=== PATIENT | male | born 1940 | race Caucasian/White ===

== ENCOUNTER 2016-09-07 18:42 | Emergency (ER) | payer MEDICARE ==
[~2016-09-07] VITALS: Ht 180.3 cm; Wt 94.5 kg
[2016-09-07 18:45] VITALS: BP 161/86; PULSE 70; RESP 16; O2SAT 96
[2016-09-07 19:20] LABS: BASOPHILS % (AUTO) 0.1 % (0-3); EOSINOPHILS % (AUTO) 1.2 % (0-5); MONOCYTES % (AUTO) 9.2 % (4-12); Mean Corpuscular Hemoglobin 31.1 pg (27.0-35.0); Mean Corpuscular Volume 92.2 fL (81-100); NEUTROPHILS % (AUTO) 70.5 % (40-74); Platelet Count 252 bil/L (150-400)
[2016-09-07 19:43] LABS: Magnesium 2.2 mg/dL (1.6-2.6)
[2016-09-07 20:53] VITALS: BP 153/81; PULSE 61; RESP 14; O2SAT 95
--- NOTE | 2016-09-07 21:07 | ED.REPORT ---
HPI-Abd Pain M 40 and Over Date of Service Sep 07, 2016 ED Provider: Andrew Tirado MD The patient is a 76 year old male who presents to the ED complaining of epigastric abdominal pain for the last week. He reports his pain is exacerbated by eating and that it begins immediately after he eats. He denies radiation of his pain. Associated symptom of constipation. He denies nausea, vomiting, dysuria, cough, or any other symptoms at this time. He denies alcohol consumption. Nursing Notes Stated Complaint: CHEST PAIN Chief Complaint: Male Abdominal Pain Nursing Notes Reviewed: Yes Allergies: Coded Allergies: acetaminophen (Verified Allergy, Severe, Rash,Itching,, 09/07/16) Scheduled Omeprazole (Omeprazole) 20 Mg Tablet.dr 20 MG PO BID Scheduled PRN oxyCODONE (oxyCODONE) 5 Mg Capsule 5 MG PO Q4H PRN PRN For Pain General Time Seen by MD: 21:06 Chief Complaint Abdominal pain Hx Obtained From: Patient, Spouse Arrived By: Walk-in Sudden in Onset?: No Onset Occurred: 1 week ago Symptom Duration: Intermittent Location: : Epigastric Quality: Painful Severity: Current: Mild Severity: Maximum: Moderate Recent Healthcare: No recent doctor visit, No recent hospitalization Similar Sx Previous: No Past Medical History Past Medical History CVA DM Past Surgical History Reports: Appendectomy Smoking History Never Smoker Social History Alcohol Use: Denies alcohol use Drug Use: Denies drug use Ambulatory Status Independent Review of Systems Constitutional: Denies: Chills, Fever Respiratory: Denies: Non-productive cough, Shortness of breath GI: Reports: Abdominal pain, Constipation, Denies: Diarrhea, Nausea, Vomiting Male: Denies Dysuria Musculoskeletal: Denies: Back pain, Extremity pain, Neck pain Complete sys rev & neg: except as marked. Physical Exam Initial Vital Signs Vital Signs (First) Date Time Temp Pulse Resp B/P Pulse Ox O2 Delivery O2 Flow Rate FiO2 09/07/16 18:45 36.1 70 16 161/86 96 Room Air Initial VS: Reviewed Head / Eyes: Atraumatic, Normocephalic, PERRL ENT: Mucous membranes moist, Conjunctiva normal, No scleral icterus Neck: Supple, Non-tender, Full range of motion Extremities: Vascular intact, Neuro intact, No swelling, No tenderness Skin: Warm, Dry, No cyanosis Neurologic: Alert, Oriented, Nonfocal Psychiatric: Mood/affect normal, Behavior normal, Normal thought content General/Constitutional: Awake, Alert, No acute distress Respiratory / Chest: Atraumatic, Breath sounds NL, Breath sounds = bilat, No respiratory distress Cardiovascular: Heart rate NL, Regular rhythm, Heart sounds NL Abdomen: Atraumatic, Soft Tenderness/Guarding/Rebound: Positive: Tender epigastric Back: Atraumatic, Inspection NL, Full range of motion Interpretation & Diagnostics Lab Results Interpretation Result Diagram: 09/07/16191409/07/161914 Test 09/07/16 19:15 09/07/16 21:50 White Blood Count 6.8th/mm3 (3.8-10.1) Red Blood Count 3.86mil/mm3 (4.40-5.80) Hemoglobin 12.0g/dL (13.8-17.2) Hematocrit 35.6% (41.0-50.0) Mean Corpuscular Volume 92.2fL (81-100) Mean Corpuscular Hemoglobin 31.1pg (27.0-35.0) Mean Corpuscular Hemoglobin Concent 33.7% (32.0-37.0) Red Cell Distribution Width 11.8% (12.3-15.4) Platelet Count 252bil/L (150-400) Neutrophils (%) (Auto) 70.5% (40-74) Lymphocytes (%) (Auto) 18.7% (14-46) Monocytes (%) (Auto) 9.2% (4-12) Eosinophils (%) (Auto) 1.2% (0-5) Basophils (%) (Auto) 0.1% (0-3) Sodium Level 138mEq/L (134-144) Potassium Level 4.4mEq/L (3.5-5.2) Chloride Level 102mEq/L (97-108) Carbon Dioxide Level 23mmol/L (18-29) Blood Urea Nitrogen 34mg/dL (8-27) Creatinine 1.77mg/dL (0.76-1.27) Estimat Glomerular Filtration Rate 40mL/min (>59) Glucose Level 191mg/dL (60-99) Calcium Level 8.6mg/dL (8.5-10.1) Magnesium Level 2.2mg/dL (1.6-2.6) Total Bilirubin 0.2mg/dL (0.0-1.2) Aspartate Amino Transf (AST/SGOT) 21U/L (0-50) Alanine Aminotransferase (ALT/SGPT) 16U/L (0-44) Alkaline Phosphatase 60U/L (25-160) Total Protein 6.4g/dL (6.4-8.4) Albumin 3.8g/dL (3.4-5.0) Lipase 29U/L (13-60) Hold Lora Top Tube Received (Received) Hold Urine Received (Received) Lab Results Interpretation: Urine dip significant for elevated glucose (250) ECG Interpretation ECG Interpretation: Sinus rhythm with rate 57 1st degree AV block Possible old inferior wall [place] Time: 20:47 Interpreted by: ED physician CT Abd / Pelvis Interpretation CONCLUSION: Small hiatal hernia. No inflammatory bowel changes. No cholelithiasis or evidence of cholecystitis. No CT evidence of pancreatitis. Status post prostatectomy and probably pelvic lymph node dissection. Study type: Abdominal CT IV contrast Interpretation / Wet Read by: Interpret - Radiologist Re-Eval/Medical Decision Med Decision/Clinical Course Acute epigastric pain associated with eating. Story most suggestive of reflux and possible ulcer disease. No evidence of pancreatitis. No evidence of acute heart disease. No evidence of cold the cystitis. Pain is immediate and not delayed, and unlikely ischemic in origin. CT scan shows only a large hiatal hernia. No other findings on lab or evaluation otherwise. Home with twice a day omeprazole, routine reflux precautions, and return if worse. Source of Hx: Old records Time of Eval: 22:57 Re-Evaluation/Progress Note: Rechecked the patient. Discussed diagnosis and plan for discharge. Follow-up instructions and RTER warnings given. The patient understands and agrees to the plan. All questions addressed. Counseled Regarding: Diagnosis, Lab results, Need for follow-up, When/why to return to ED Discharge & Departure Primary Impression: Epigastric pain Additional Impressions: HH (hiatus hernia) Esophageal spasm Disposition: Home Vital Signs - All Vital Signs Date Time Temp Pulse Resp B/P Pulse Ox O2 Delivery O2 Flow Rate FiO2 09/07/16 23:20 64 18 163/72 97 Room Air 09/07/16 20:53 61 14 153/81 95 Room Air 09/07/16 18:45 36.1 70 16 161/86 96 Room Air )( All Prior VS Reviewed: Yes Condition: Stable Patient Instructions: Esophageal Spasm (ED), Gastroesophageal Reflux Disease ( ED), Hiatal Hernia (ED) Additional Instructions: Omeprazole twice daily. Eat smaller meals, more frequently. Avoid supine posture and bending over after eating. Oxycodone if needed for pain. Follow-up with your doctor in the office. Return if any immediate issues. Referrals: Lion Little (PCP) [place] Attestation Portions of this note were transcribed by Uri Campo. I, Dr. Tirado, personally performed the history, physical exam, and medical decision-making; I reviewed and confirmed the accuracy of the information in the transcribed note. Signed by: Mariposa Ward, 09/07/16 21:10. copies to: Lion Little Christopher W MD Sep 07, 2016 21:07 URI CAMPO Sep 07, 2016 21:16
[2016-09-07] MEDS ORDERED: Pantoprazole 4 mg/mL 10 mL Inj IVPUSH ONE (21:20)
[2016-09-07] MEDS ORDERED: 0.9% Sodium Chloride 1,000 ML IV ONE (21:20)
[2016-09-07] MEDS ORDERED: OXYC5CAP4 PO (22:57)
[2016-09-07] MEDS ORDERED: OMEP20TA86 PO (23:06)
[2016-09-07 23:20] VITALS: BP 163/72; PULSE 64; RESP 18; O2SAT 97
--- NOTE | 2016-09-08 08:19 | DRSVH ---
PROCEDURE: CT ABDOMEN AND PELVIS WITH CONTRAST ([id number]) INDICATIONS: Epigastric pain TECHNIQUE: After the administration of oral and intravenous contrast, 5 mm thick sections acquired from the diap hragms to the symphysis. 5 mm thick coronal and sagittal reformats were performed. For radiation do se reduction, the following was used: automated exposure control, adjustment of mA and/or kV accordi ng to patient size. COMPARISON: None. FINDINGS: Image quality: Excellent. ABDOMEN: Lung bases: There is mild dependent atelectasis. Heart size is normal. There is coronary arterial v ascular calcification. A small hiatal hernia is present. Solid organs: There is mild hypoattenuation of the liver consistent with fatty infiltration. The spl een is normal in size. Gallbladder is within normal limits without calcified gallstones. Biliary sy stem is non-dilated. The pancreas demonstrates mild fatty atrophy in the uncinate process. No perip ancreatic fat stranding or fluid. No pancreatic duct dilatation. No adrenal nodules. Kidneys are n ormal in size and enhancement, without hydronephrosis. Peritoneum and bowel: Stomach, small bowel, and colon loops are normal in caliber and wall thickness . Appendix not identified and likely surgically absent. No pericecal inflammatory changes to sugges t appendicitis. No free fluid or air. Nodes and vessels: No retroperitoneal or mesenteric adenopathy. Aorta and inferior vena cava are no rmal in caliber. Miscellaneous: No ventral hernias. PELVIS: Genitourinary: Bladder wall thickness is normal. Multiple surgical clips are demonstrated in the pe lvis compatible with prior prostatectomy and probable lymph node dissection. Miscellaneous: No inguinal hernias or adenopathy. Bones: No suspicious bony lesions. No vertebral body compression fractures. IMPRESSION: 1. Small sliding hiatal hernia. 2. No CT evidence of cholecystitis or pancreatitis. 3. Postsurgical changes in the pelvis as described. Findings concordant with preliminary report. Dictated by: Chas Wilde M.D. on 09/08/2016 at 8:14 Approved by: Chas Wilde M.D. on 09/08/2016 at 8:14
== END 2016-09-07 23:20 | disposition home or self-care (01) ==
LOC: SED 18:42
DX: R10.13 Epigastric pain (principal); K44.9 Diaphragmatic hernia without obstruction or gangrene; K22.4 Dyskinesia of esophagus; K59.00 Constipation, unspecified; E11.9 Type 2 diabetes mellitus without complications; Z86.73 Personal history of transient ischemic attack (TIA), and cerebral infarction without residual deficits; Z98.890 Other specified postprocedural states; Z88.8 Allergy status to other drugs, medicaments and biological substances
CPT/HCPCS: 36415; 74177; 80053; 83690; 83735; 85025; 93005; 96374; 99285; J7030; Q9967

== ENCOUNTER 2017-04-14 17:13 | Emergency (ER) | payer MEDICARE ==
[~2017-04-14] VITALS: Ht 180.3 cm; Wt 88.6 kg
[~2017-04-14 17:13] MED LIST: OMEP20TA86 PO; OXYC5CAP4 PO
[2017-04-14 17:18] VITALS: BP 134/85; PULSE 95; RESP 20; RESP 22; O2SAT 97
--- NOTE | 2017-04-14 18:09 | ED.REPORT ---
HPI-General Illness Date of Service Apr 14, 2017 ED Provider: Chucky Ca MD Patient is a 76 year old male with a hx of DM and CVA who presents to the ED complaining of a cough onset 6 days ago. He started to get better but has been gradually worsening. Associated symptoms include sore throat, SOB secondary to coughing, and pleuritic pain. He denies fever, chills, nausea, vomiting, abdominal pain, diarrhea, constipation, chest pain, or any other symptoms. He has been taking Delsym DM with mild relief. Nursing Notes Stated Complaint: COUGH Chief Complaint: FLU/Cold Symptoms Nursing Notes Reviewed: Yes Allergies: Coded Allergies: acetaminophen (Verified Allergy, Severe, Rash,Itching,, 04/14/17) Scheduled Guaifenesin/Codeine Phosphate (Coditussin AC Liquid) 200 Mg-10 Mg/5 Ml Liquid 5 ML PO TID Omeprazole (Omeprazole) 20 Mg Tablet.dr 20 MG PO BID Scheduled PRN oxyCODONE (oxyCODONE) 5 Mg Capsule 5 MG PO Q4H PRN PRN For Pain General Time Seen by MD: 18:08 Chief Complaint Cough Hx Obtained From: Patient, Spouse Arrived By: Walk-in Sudden in Onset?: Yes Onset Occurred: 6 days ago Symptom Duration: Since onset Past Medical History Past Medical History CVA DM Past Surgical History Reports: Appendectomy Smoking History Never Smoker Social History Alcohol Use: Denies alcohol use Drug Use: Denies drug use Ambulatory Status Independent Review of Systems Full Review of Systems Constitutional: Denies: Chills, Fever Ears / Nose / Throat: Reports: Sore throat Respiratory: Reports: Non-productive cough, Pleuritic pain, Shortness of breath Cardiovascular: Denies: Chest pain GI: Denies: Abdominal pain, Constipation, Diarrhea, Nausea, Vomiting Complete sys rev & neg: except as marked. Physical Exam Vital Signs Vital Signs Date Time Temp Pulse Resp B/P Pulse Ox O2 Delivery O2 Flow Rate FiO2 04/14/17 20:15 74 16 136/72 96 Room Air 04/14/17 19:22 88 22 95 Room Air 04/14/17 17:18 36.8 95 22 134/85 97 Room Air Initial VS: Reviewed, Vital signs normal Head / Eyes: Atraumatic, Normocephalic Neck: Full range of motion Abdomen / GI: Soft, Non-tender Skin: Warm, Dry Neurologic: Alert, Oriented, Nonfocal Psychiatric: Mood/affect normal, Behavior normal, Normal thought content General/Constitutional: Awake, Alert Distress / Hydration: Positive: Distress moderate Respiratory / Chest: Atraumatic Wheezes bilaterally Good air movement Cardiovascular: Heart rate NL, Regular rhythm, Heart sounds NL, No gallop, No murmurs, No rubs Interpretation & Diagnostics Lab Results Interpretation Result Diagram: 04/14/172 04/14/17 1852 Test 04/14/17 18:52 04/14/17 18:53 White Blood Count 8.4th/mm3 (3.8-10.1) Red Blood Count 4.03mil/mm3 (4.40-5.80) Hemoglobin 12.4g/dL (13.8-17.2) Hematocrit 36.6% (41.0-50.0) Mean Corpuscular Volume 90.8fL (81-100) Mean Corpuscular Hemoglobin 30.8pg (27.0-35.0) Mean Corpuscular Hemoglobin Concent 33.9% (32.0-37.0) Red Cell Distribution Width 11.8% (12.3-15.4) Platelet Count 322bil/L (150-400) Neutrophils (%) (Auto) 78.6% (40-74) Lymphocytes (%) (Auto) 9.9% (14-46) Monocytes (%) (Auto) 9.6% (4-12) Eosinophils (%) (Auto) 1.3% (0-5) Basophils (%) (Auto) 0.2% (0-3) Sodium Level 140mEq/L (134-144) Potassium Level 4.2mEq/L (3.5-5.2) Chloride Level 104mEq/L (97-108) Carbon Dioxide Level 19mmol/L (18-29) Blood Urea Nitrogen 33mg/dL (8-27) Creatinine 1.69mg/dL (0.76-1.27) Estimat Glomerular Filtration Rate 42mL/min (>59) Glucose Level 166mg/dL (60-99) Calcium Level 9.0mg/dL (8.5-10.1) Total Bilirubin 0.3mg/dL (0.0-1.2) Aspartate Amino Transf (AST/SGOT) 20U/L (0-50) Alanine Aminotransferase (ALT/SGPT) 13U/L (0-44) Alkaline Phosphatase 77U/L (25-160) Troponin T < 0.010ug/L (0.0-0.011) Total Protein 7.2g/dL (6.4-8.4) Albumin 4.0g/dL (3.4-5.0) Hold Lora Top Tube Received (Received) ECG Interpretation ECG Interpretation: Sinus tachycardia rate 102 Time: 18:07 Interpreted by: ED physician X-Ray Chest Interpretation Chest Xray Interpretation: IMPRESSION: Trace left lower lobe radiopacities suspicious for aspiration/infection. Dictated by: Anastasiia Bailey M.D. on 04/14/2017 at 18:29 Approved by: Anastasiia Bailey M.D. 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 On augmenting for a recent cellulitis. Also tested postive fo noroviurs recently. Has mild hyperkalemia and clinically dehydrated, kidney functions also diminished. . Stool for C-diff ordered but pt has not provided a sample thus far. Have provded NS x1L bolus, pt still complaining of weakness. Will admit to hospitalist service for hydration, monitoring of K and testing for C diff. Time of Eval: 19:56 Re-Evaluation/Progress Note: Rechecked pt. Breathing treatment calmed cough a bit but pt's throat is still very sore. Discussed plan for further treatment and discharge. Patient understands and agrees with plan. All questions addressed at this time. Counseled Regarding: Diagnosis, Lab results, Need for follow-up, When/why to return to ED Discharge & Departure Primary Impression: Pneumonia Pneumonia type: due to unspecified organism Laterality: unspecified laterality Lung location: unspecified part of lung Qualified Code: J18.9 - Pneumonia, unspecified organism Additional Impressions: Reactive airway disease Asthma severity: mild intermittent Asthma complication type: with acute exacerbation Qualified Code: J45.21 - Mild intermittent asthma with (acute) exacerbation Cough Disposition: Home Discharge Condition All VS Reviewed: Yes Condition: Improved Patient Instructions: Bacterial Pneumonia (ED) Additional Instructions: Emergency Department evaluation included an becoming examination labs and chest x-ray. A pneumonia is found on chest x-ray. Remainder of evaluation is reassuring and we expect that this can be managed at home. Azithromycin has been started, take daily until gone. Use albuterol 2 puffs every 4 hours as needed for wheezing or cough. Robitussin AC 5-10 mL every 8 hours as needed for cough. Return to emergency department for increasing shortness of breath fever or shaking chills or frequent vomiting. Follow-up with primary care in 3- 4 days. Referrals: Lion Little (PCP) [place] Attestation Portions of this note were transcribed by Mark Cesar. I, Dr. Ca personally performed the history, physical exam and medical decision-making; I reviewed and confirmed the accuracy of the information in the transcribed note. Signed by: Mariposa Ball, 04/14/17 copies to: Lion Little Donald L MD Apr 14, 2017 18:09 MARK CESAR Apr 14, 2017 18:18
--- NOTE | 2017-04-14 18:32 | DRSVH ---
PROCEDURE: X-RAY CHEST ONE VIEW, PORTABLE ([id number]) INDICATIONS: cp TECHNIQUE: One view of the chest was acquired. COMPARISON: None. FINDINGS: Surgical changes and devices: None. Lungs and pleura: Subtle streaky opacities are present within the left mid and lower lung. The lungs are otherwise clear. No pleural effusion or pneumothorax. Mediastinum: Mediastinal contours appear normal. Heart size is normal. Bones and chest wall: No suspicious bony lesions. Overlying soft tissues appear unremarkable. IMPRESSION: Trace left lower lobe radiopacities suspicious for aspiration/infection. Dictated by: Anastasiia Bailey M.D. on 04/14/2017 at 18:29 Approved by: Anastasiia Bailey M.D. on 04/14/2017 at 18:30
[2017-04-14 18:55] LABS: BASOPHILS % (AUTO) 0.2 % (0-3); EOSINOPHILS % (AUTO) 1.3 % (0-5); MONOCYTES % (AUTO) 9.6 % (4-12); Mean Corpuscular Hemoglobin 30.8 pg (27.0-35.0); Mean Corpuscular Volume 90.8 fL (81-100); NEUTROPHILS % (AUTO) 78.6 % (40-74); Platelet Count 322 bil/L (150-400)
[2017-04-14] MEDS ORDERED: _Albuterol-HFA 60 Puff Inhaler INHALATION PRN (19:00)
[2017-04-14] MEDS ORDERED: _Azithromycin 250 mg Tablet PO SCH (19:00)
[2017-04-14] MEDS ORDERED: Albuterol-Ipratropium 3 mL Inhalation Solution NEB ONE (19:00)
[2017-04-14 19:22] VITALS: PULSE 88; RESP 22; O2SAT 95
[2017-04-14] MEDS ORDERED: Codeine-guaiFENesin 10 mL Syrup PO ONE (20:00)
[2017-04-14] MEDS ORDERED: GUAI-899 PO (20:06)
[2017-04-14 20:15] VITALS: BP 136/72; PULSE 74; RESP 16; O2SAT 96
== END 2017-04-14 20:25 | disposition home or self-care (01) ==
LOC: SED 17:13
DX: J18.9 Pneumonia, unspecified organism (principal); J45.909 Unspecified asthma, uncomplicated; E11.9 Type 2 diabetes mellitus without complications; R07.81 Pleurodynia; Z86.73 Personal history of transient ischemic attack (TIA), and cerebral infarction without residual deficits; Z90.89 Acquired absence of other organs; Z88.6 Allergy status to analgesic agent
CPT/HCPCS: 36415; 71010; 80053; 84484; 85025; 93005; 94640; 94664; 99285; J7620

== ENCOUNTER 2017-04-29 18:14 | Emergency (ER) | payer MEDICARE ==
[~2017-04-29] VITALS: Ht 180.3 cm; Wt 96.4 kg
[~2017-04-29 18:14] MED LIST changes: +GUAI-899 PO
[2017-04-29 18:21] VITALS: BP 109/75; PULSE 90; RESP 32; O2SAT 92
--- NOTE | 2017-04-29 18:30 | ED.REPORT ---
HPI-General Illness Date of Service Apr 29, 2017 ED Provider: Ata Isbell MD The pt is a 76 year old male with a history of diabetes and CVA who is brought to the ED by family due to difficulty breathing. The pt was diagnosed with pneumonia two weeks ago and prescribed a five day course of Azithromycin, which he completed, in addition to using an albuterol inhaler. However he has continued to experience shortness of breath, increased effort with breathing, wheezing and cough, though he denies fever or lower extremity edema. He was evaluated again after completing the antibiotics and diagnosed with a " bronchial infection". The pt responded well to nebulizer treatment but has not been put on steroids or any additional antibiotics. His symptoms have not yet resolved. Denies any fevers or chills. No history of DVT or PE. No recent surgery or prolonged immobilization. Nursing Notes Stated Complaint: PROBLEMS BREATHING Chief Complaint: Respiratory Complaints Nursing Notes Reviewed: Yes Allergies: Coded Allergies: acetaminophen (Verified Allergy, Severe, Rash,Itching,, 04/14/17) Scheduled Guaifenesin/Codeine Phosphate (Coditussin AC Liquid) 200 Mg-10 Mg/5 Ml Liquid 5 ML PO TID Omeprazole (Omeprazole) 20 Mg Tablet.dr 20 MG PO BID Prednisone (PredniSONE) 20 Mg Tablet 40 MG PO DAILY Scheduled PRN oxyCODONE (oxyCODONE) 5 Mg Capsule 5 MG PO Q4H PRN PRN For Pain General Time Seen by MD: 18:27 Chief Complaint Other (Difficulty breathing) Hx Obtained From: Patient, Other family... Arrived By: Walk-in Sudden in Onset?: No Onset Occurred: More than a week ago... Symptom Duration: Since onset Recent Healthcare: Recent doctor visit Similar Sx Previous: Yes Past Medical History Past Medical History CVA DM Past Surgical History Reports: Appendectomy Smoking History Never Smoker Social History Alcohol Use: Denies alcohol use Drug Use: Denies drug use Ambulatory Status Independent Review of Systems increased effort with breathing denies lower extremity edema Full Review of Systems Constitutional: Denies: Fever Respiratory: Reports: Non-productive cough, Shortness of breath GI: Denies: Abdominal pain, Vomiting Musculoskeletal: Denies: Back pain, Neck pain Skin: Denies Rash Complete sys rev & neg: except as marked. Physical Exam Vital Signs Vital Signs Date Time Temp Pulse Resp B/P Pulse Ox O2 Delivery O2 Flow Rate FiO2 9/4/17 22:17 36.9 92 20 136/107 94 Room Air 04/29/17 21:19 84 22 93 Room Air 04/29/17 20:43 78 26 155/93 94 Room Air 04/29/17 18:21 37.0 90 32 109/75 92 Room Air Initial VS: Reviewed General/Constitutional: Awake, Alert occasional dry, non-productive sounding cough Head / Eyes: Atraumatic, EOMI ENT: Atraumatic, Airway patent, Mucous membranes moist Neck: Atraumatic, Supple, Full range of motion Respiratory / Chest: Atraumatic, Breath sounds = bilat decreased air movement in all lung stevens expiratory wheezing Cardiovascular: Heart rate NL, Regular rhythm, Heart sounds NL, No gallop, No murmurs, No rubs Abdomen: Atraumatic, Soft, Non-tender Back: Atraumatic, Full range of motion Upper Extremities Upper Extremity / MS: Atraumatic, Full range of motion Lower Extremity / Pelvis / MS: Atraumatic, Full range of motion no calf swelling or tenderness Skin: Color NL, No rash, Warm, Dry Neurologic: Oriented X3, Speech NL, No motor deficits, No sensory deficits Psychiatric: Affect NL, Mood NL Interpretation & Diagnostics Lab Results Interpretation Result Diagram: 04/29/178 04/29/17 1848 Test 04/29/17 18:48 White Blood Count 6.0th/mm3 (3.8-10.1) Red Blood Count 3.99mil/mm3 (4.40-5.80) Hemoglobin 12.2g/dL (13.8-17.2) Hematocrit 36.5% (41.0-50.0) Mean Corpuscular Volume 91.5fL (81-100) Mean Corpuscular Hemoglobin 30.6pg (27.0-35.0) Mean Corpuscular Hemoglobin Concent 33.4% (32.0-37.0) Red Cell Distribution Width 12.1% (12.3-15.4) Platelet Count 445bil/L (150-400) Neutrophils (%) (Auto) 63.1% (40-74) Lymphocytes (%) (Auto) 26.3% (14-46) Monocytes (%) (Auto) 9.2% (4-12) Eosinophils (%) (Auto) 1.0% (0-5) Basophils (%) (Auto) 0.2% (0-3) Prothrombin Time 11.6sec (8.1-12.5) Prothromb Time International Ratio 1.08ratio Sodium Level 137mEq/L (134-144) Potassium Level 4.0mEq/L (3.5-5.2) Chloride Level 99mEq/L (97-108) Carbon Dioxide Level 22mmol/L (18-29) Blood Urea Nitrogen 39mg/dL (8-27) Creatinine 2.00mg/dL (0.76-1.27) Estimat Glomerular Filtration Rate 35mL/min (>59) Glucose Level 220mg/dL (60-99) Lactic Acid Level 1.2mmol/L (0.4-2.0) Calcium Level 9.0mg/dL (8.5-10.1) Magnesium Level 2.2mg/dL (1.6-2.6) Total Bilirubin 0.3mg/dL (0.0-1.2) Aspartate Amino Transf (AST/SGOT) 22U/L (0-50) Alanine Aminotransferase (ALT/SGPT) 16U/L (0-44) Alkaline Phosphatase 69U/L (25-160) Troponin T < 0.010ug/L (0.0-0.011) Pro-B-Type Natriuretic Peptide 189.8pg/mL (0-486) Total Protein 7.2g/dL (6.4-8.4) Albumin 3.9g/dL (3.4-5.0) ECG Interpretation ECG Interpretation: poor baseline quality EKG normal sinus rhythm with a rate of [address] segment elevation no obvious T wave inversions EKG interpretation limited due to poor baseline quality when compared to prior EKG dated04/14/2017, no obvious acute changes Time: 18:52 Interpreted by: ED physician X-Ray Chest Interpretation Chest Xray Interpretation: IMPRESSION: 1. No acute cardiopulmonary disease. Dictated by: Chas Wilde M.D. on 04/29/2017 at 19:51 Approved by: Chas Wilde M.D. on 04/29/2017 at 19:52 Interpretation / Wet Read by: Interpret - Radiologist Re-Eval/Medical Decision Med Decision/Clinical Course The pt is a 76 year old male with a history of diabetes and CVA who is brought to the ED by family due to difficulty breathing. The pt was diagnosed with pneumonia two weeks ago and prescribed a five day course of Azithromycin, which he completed, in addition to using an albuterol inhaler. However he has continued to experience shortness of breath, increased effort with breathing, wheezing and cough, though he denies fever or lower extremity edema. He was evaluated again after completing the antibiotics and diagnosed with a " bronchial infection". The pt responded well to nebulizer treatment but has not been put on steroids or any additional antibiotics. His symptoms have not yet resolved. Denies any fevers or chills. No history of DVT or PE. No recent surgery or prolonged immobilization. Here in the emergency Department the patient is afebrile hemodynamically stable. Examination reveals occasional dry sounding cough, scattered expiratory wheezing and coarse breath sounds. 2 DuoNebs and 40 of Prednisone given in ED. patient reported significant symptomatic improvement. Left wrist that is notable as below: No leukocytosis Hematocrit 36.5 BUN elevated at 39 Creatinine elevated at 2.00 Glucose 220 Lactic acid within normal limits No electrolyte abnormalities Coagulation within normal limits Troponin negative EKG: poor baseline quality EKG normal sinus rhythm with a rate of [address] segment elevation no obvious T wave inversions EKG interpretation limited due to poor baseline quality when compared to prior EKG dated04/14/2017, no obvious acute changes Chest X-Ray: IMPRESSION: 1. No acute cardiopulmonary disease. Overall presentation consistent with bronchitis setting of recent pneumonia. No evidence of focal consolidation on chest x-ray today. I do not feel that further courses of antibiotics are indicated. Overall presentation, history and examination is not suggestive of pulmonary embolism. No physical exam findings suggestive of DVT. BUN and creatinine slightly elevated from baseline laboratory studies are otherwise reassuring. Presentation is not suggestive of acute coronary syndrome and EKG/troponin are reassuring at this time. Patient has responded well to bronchodilator therapy and is demonstrating no significant respiratory distress. He is speaking in full sentences with good oxygen saturation on room air. Patient was ambulated on pulse oximetry with good oxygen saturation. Patient would like to be discharged home. I feel that this is reasonable as long as he can follow closely with his primary care doctor. He has been given a five-day course of prednisone and use albuterol inhaler with spacer every 2-4 hours for the next 48 hours. Prior to discharge follow-up and return precautions were reviewed in detail with the patient and family who verbalized understanding and agreement with the plan. The patient was discharged in stable condition. He was additionally advised to follow-up with his regular physician for repeat renal function testing in the next week. Source of Hx: Old records Time of Eval: 22:05 Patient Status: Condition improved Re-Evaluation/Progress Note: Pt rechecked, who is comfortable and prepared for discharge. On repeat exam, the pt has a dry sounding cough and mild wheeze, but has improved. The diagnosis and plan for discharge are discussed. The pt understands and agrees with the plan. All questions are addressed at this time. Counseled Regarding: Diagnosis, Lab results, Need for follow-up, When/why to return to ED Discharge & Departure Primary Impression: Bronchitis Additional Impressions: Wheezing Shortness of breath Acute kidney injury Disposition: Home Discharge Condition All VS Reviewed: Yes Condition: Stable Patient Instructions: Acute Bronchitis (ED), Shortness of Breath (ED), Wheezing (ED) Additional Instructions: Thank you for seeking care at the emergency room. It is difficult for us to make definitive diagnoses in the ED but we believe that you are experiencing bronchitis. Our primary goal today in the Emergency Department was to evaluate you for any life-threatening conditions. Your evaluation was reassuring. You will be discharged with a prescription for Prednisone. Take the Prednisone as prescribed. Use the nebulizer every 2-4 hours as needed. You should follow-up with your primary doctor in the next week. You should return to the Emergency Department immediately if you develop fevers , vomiting, cough, shortness of breath, chest pain, lightheadedness, weakness or any other concerning signs or symptoms. Thank you for letting us partake in your care today. Referrals: Lion Little (PCP) Phillip Correa MD Scribe Attestation Portions of this note were transcribed by Abel Bingham. I, Dr. Isbell personally performed the history, physical exam and medical decision-making; I reviewed and confirmed the accuracy of the information in the transcribed note. copies to: Phillip Correa MD; Lion Little Beck O MD Apr 29, 2017 18:30 ABEL BINGHAM Apr 29, 2017 19:56
[2017-04-29 18:59] LABS: BASOPHILS % (AUTO) 0.2 % (0-3); MONOCYTES % (AUTO) 9.2 % (4-12); Mean Corpuscular Hemoglobin 30.6 pg (27.0-35.0); Mean Corpuscular Volume 91.5 fL (81-100); NEUTROPHILS % (AUTO) 63.1 % (40-74); Platelet Count 445 bil/L (150-400)
[2017-04-29 19:12] LABS: INR 1.08 ratio
[2017-04-29 19:17] LABS: TROPONIN T < 0.010 ug/L (0.0-0.011)
[2017-04-29 19:27] LABS: Magnesium 2.2 mg/dL (1.6-2.6)
--- NOTE | 2017-04-29 19:54 | DRSVH ---
PROCEDURE: X-RAY CHEST, TWO VIEWS ([id number]) INDICATIONS: cough TECHNIQUE: 2 views of the chest were acquired. COMPARISON: [facility], CR, XR CHEST 1VW (PORTABLE), 04/14/2017, 18:10. FINDINGS: Surgical changes and devices: None. Lungs and pleura: No pleural effusions or pneumothorax. Lungs are clear. Mediastinum: Mediastinal contours are normal. Heart size is normal. Bones and chest wall: No suspicious bony abnormalities. Soft tissues appear unremarkable. IMPRESSION: 1. No acute cardiopulmonary disease. Dictated by: Chas Wilde M.D. on 04/29/2017 at 19:51 Approved by: Chas Wilde M.D. on 04/29/2017 at 19:52
[2017-04-29 20:43] VITALS: BP 155/93; PULSE 78; RESP 26; O2SAT 94
[2017-04-29] MEDS ORDERED: predniSONE 20 mg Tablet PO ONE (21:00)
[2017-04-29] MEDS ORDERED: Albuterol-Ipratropium 3 mL Inhalation Solution NEB ONE (21:00)
[2017-04-29 21:19] VITALS: PULSE 84; RESP 22; O2SAT 93
[2017-04-29] MEDS ORDERED: PRE20 PO (22:07)
[2017-04-29 22:17] VITALS: BP 136/107; PULSE 92; RESP 20; O2SAT 94
== END 2017-04-29 22:18 | disposition home or self-care (01) ==
LOC: SED 18:14
DX: J40 Bronchitis, not specified as acute or chronic (principal); R06.2 Wheezing; R06.02 Shortness of breath; N17.9 Acute kidney failure, unspecified; E11.9 Type 2 diabetes mellitus without complications; Z86.73 Personal history of transient ischemic attack (TIA), and cerebral infarction without residual deficits; Z88.6 Allergy status to analgesic agent
CPT/HCPCS: 36415; 71020; 80053; 83605; 83735; 83880; 84484; 85025; 85610; 93005; 94640; 94664; 99285; J7620

== ENCOUNTER 2017-05-17 23:23 | Emergency (ER) | payer MEDICARE ==
[~2017-05-17] VITALS: Ht 180.3 cm; Wt 92.7 kg
[~2017-05-17 23:23] MED LIST changes: +PRE20 PO
[2017-05-17 23:25] VITALS: BP 178/93; PULSE 77; RESP 18; O2SAT 98
--- NOTE | 2017-05-18 00:13 | ED.REPORT ---
HPI-Abd Pain M 40 and Over Date of Service May 18, 2017 ED Provider: Sammy Coombs DO Pt is a 77 year old male with a history of prostate cancer, CVA, and DM who presents to the ED complaining of constipation onset 3 days ago. He c/o associated abdominal pain. He denies any other symptoms. His reports that she performed fleets enema tonight, but they state that it did not work. Pt complains of associated rectal bleeding and his believe that it may be from enema. Nursing Notes Stated Complaint: CONSTIPATION Chief Complaint: Male Abdominal Pain Nursing Notes Reviewed: Yes Allergies: Coded Allergies: acetaminophen (Verified Allergy, Severe, Rash,Itching,, 05/17/17) Scheduled Guaifenesin/Codeine Phosphate (Coditussin AC Liquid) 200 Mg-10 Mg/5 Ml Liquid 5 ML PO TID Omeprazole (Omeprazole) 20 Mg Tablet.dr 20 MG PO BID Prednisone (PredniSONE) 20 Mg Tablet 40 MG PO DAILY Scheduled PRN oxyCODONE (oxyCODONE) 5 Mg Capsule 5 MG PO Q4H PRN PRN For Pain General Time Seen by MD: 00:13 Chief Complaint Abdominal pain Hx Obtained From: Patient Arrived By: Walk-in Sudden in Onset?: No Onset Occurred: 3 days ago Symptom Duration: Since onset Location: : Diffuse Quality: Painful Radiation: : Does not radiate Severity: Current: Moderate Severity: Maximum: Moderate Recent Healthcare: No recent doctor visit, No recent hospitalization Similar Sx Previous: No Past Medical History Past Medical History CVA Prostate cancer Bronchitis Reports: Diabetes mellitus Past Surgical History Reports: Appendectomy Smoking History Never Smoker Social History Alcohol Use: Denies alcohol use Drug Use: Denies drug use Other Social History: Good social support, Ambulatory Status Independent Review of Systems Constitutional: Denies: Fever GI: Reports: Abdominal pain, Constipation, Hematochezia, Denies: Diarrhea Complete sys rev & neg: except as marked. Physical Exam Initial Vital Signs Vital Signs (First) Date Time Temp Pulse Resp B/P Pulse Ox O2 Delivery O2 Flow Rate FiO2 05/17/17 23:25 36.9 77 18 178/93 98 Room Air Initial VS: Reviewed Head / Eyes: Atraumatic, Normocephalic Neck: Supple, Full range of motion Extremities: Vascular intact, Neuro intact Skin: Warm, Dry, No cyanosis Neurologic: Alert, Oriented, Nonfocal Psychiatric: Mood/affect normal, Behavior normal General/Constitutional: Awake, Alert Respiratory / Chest: Atraumatic, Breath sounds NL, Breath sounds = bilat Cardiovascular: Heart rate NL, Regular rhythm, Heart sounds NL Abdomen: Atraumatic, Soft No signs of bowel obstruction Back: Atraumatic, Full range of motion Re-Eval/Medical Decision Source of Hx: Old records Time of Eval: 00:13 Re-Evaluation/Progress Note: Pt reports that he had a large bowel movement. He is feeling better and would like to go home. Informed pt of plan for discharge. Pt understands and agrees with plan for discharge. F/U instructions and RTER warnings given. All questions addressed. Counseled Regarding: Diagnosis, Need for follow-up, When/why to return to ED Discharge & Departure Primary Impression: Constipation Constipation type: unspecified constipation type Qualified Code: K59.00 - Constipation, unspecified Disposition: Home Vital Signs - All Vital Signs Date Time Temp Pulse Resp B/P Pulse Ox O2 Delivery O2 Flow Rate FiO2 05/17/17 23:25 36.9 77 18 178/93 98 Room Air )( All Prior VS Reviewed: Yes Condition: Stable Patient Instructions: Constipation (ED) Additional Instructions: Miralax pack 2x daily for the next 2 weeks. Increase the natural fiber in your diet. Call your primary care provider on Saturday for a follow up appointment next week. Return to the Emergency Department for any new or concerning symptoms. Referrals: Lion Little (PCP) Mariposa Attestation Portions of this note were transcribed by Vicky Akers. I, Dr. Coombs personally performed the history, physical exam and medical decision-making; I reviewed and confirmed the accuracy of the information in the transcribed note. Signed by : Mariposa Garcia, 05/18/17. copies to: Lion Little Todd P DO May 18, 2017 00:13 Vicky Bonds May 18, 2017 00:35
[2017-05-18] MEDS ORDERED: Sodium Biphos-Phos 133 mL Enema RECTAL ONE (00:15)
[2017-05-18] MEDS ORDERED: Lactulose 20 Gm/30 mL 30 mL Syrup PO ONE (00:20)
== END 2017-05-18 00:53 | disposition home or self-care (01) ==
LOC: SED 23:23
DX: K59.00 Constipation, unspecified (principal); E11.9 Type 2 diabetes mellitus without complications; Z85.46 Personal history of malignant neoplasm of prostate; Z86.73 Personal history of transient ischemic attack (TIA), and cerebral infarction without residual deficits; Z79.51 Long term (current) use of inhaled steroids; Z88.6 Allergy status to analgesic agent